=== PATIENT | male | born 1955 | race Caucasian/White ===

== ENCOUNTER 2020-12-12 11:00 | Outpatient (RCR) | payer MEDICARE, SELFPAY ==
--- NOTE | 2020-11-18 11:05 | PTOPEVAL ---
PHYSICAL THERAPY EVALUATION AND PLAN OF CARE 11-18-20 Thank you for referring Chano Pineda to [facility] He is scheduled to be seen for PT? 0-2 x/week for 6 weeks. He was issued a home exercise program for LE strengthening and balance. His will call for appointments as needed. Please review, sign, date and return this plan of care HUGO. I agree with and certify that the following plan of care is medically necessary. Referring Physician Date Attending referral: Carmela Petty NP/ Dr. Fitzpatrick PT Outpatient Evaluation Document 11/18/20 09:40 DOLORES (Rec: 11/18/20 10:34 DOLORES [id number]) Outpatient Past Medical History Past Medical History Source of Past Medical History Family/Significant Other Neurological History Hx Neurological Disorders No Significant History Cardiovascular History Hx Hypercholesterolemia Yes: meds Hx Hypertension Yes: meds Respiratory History Hx Respiratory Disorders No Significant History Gastrointestinal History Hx Gastrointestinal Disorders No Significant History Genitourinary History Hx Other Genitourinary Disorders Yes: issues due to prostate cancer 2016-catheter in hospital Musculoskeletal History Hx Orthopedic Surgery Yes: L femur miranda to stabilize/ no fracture- radiation Hx Other Musculoskeletal Disorders Yes: L LE lymphedema- wear compression knee high Endocrine History Hx Endocrine Disorders No Significant History Reproductive History Hx Other Reproductive Disorders Yes: prostate cancer-surgery & lymph node removal,radiation Other History Hx Cancer Yes: metasatic to bone; Evaluation Information Problem Diagnosis prostate cancer Onset Nov 04, 2020 Subjective Information recent hospitalization, home Query Text:As Reported By Patient/ one week ago; November 08 had Family removal of tumor in his brain; to go this afternoon for consultation and to start radiation to head; Prior Level of Function Activity Level (Last 3 Months) Occupation retired Activity of Daily Living Ability Independent Indoor/Home Mobility Independent Community Mobility Independent Stairs Ability Independent Functional Cognition (Planning, Shopping Needs Some Help , Taking Medications) Home Setting Home Type House,Multiple Levels Living Situation With Spouse Mobility Assistive Devices (Used Last 3 None,Cane Months) Bathroom Environment Shower, Door Bathing Equipment Built in Shower Seat,Grab Bars
--- NOTE | 2020-11-18 11:10 | OTOPEVAL ---
OCCUPATIONAL THERAPY EVALUATION REPORT AND DISCHARGE SUMMARY Chano presents for outpatient OT evaluation following surgical removal of a brain tumor on 11/08/20. He has returned to being independent with ADLs, has intact and symmetrical UE strength and coordination, no visual or visual-perceptual deficits, and has normal sitting balance. Patient's does verbalize concerns about his memory for which a speech therapy order is being faxed over to be signed as ST manages cognition at this clinic. No skilled OT indicated at this time. Thank you for this referral. Thank you for referring Chano Pineda to [facility]. Please review, sign, date and return this D/C HUGO. I agree with and certify that the following plan of care is medically necessary. Referring Physician Date Referring Provider: Carmela Petty NP / Dr. Fitzpatrick *OT Outpatient Evaluation Start: 11/18/20 09:58 Freq: Status: Active Protocol: Document 11/18/20 10:35 LISANDRO (Rec: 11/18/20 11:07 LISANDRO [email or web address]) Therapy Assessment Status Assessment Status Assessment Status Evaluation Outpatient Past Medical History Past Medical History Source of Past Medical History Family/Significant Other Neurological History Hx Neurological Disorders No Significant History Cardiovascular History Hx Hypercholesterolemia Yes: meds Hx Hypertension Yes: meds Respiratory History Hx Respiratory Disorders No Significant History Gastrointestinal History Hx Gastrointestinal Disorders No Significant History Genitourinary History Hx Other Genitourinary Disorders Yes: issues due to prostate cancer 2016-catheter in hospital Musculoskeletal History Hx Orthopedic Surgery Yes: L femur miranda to stabilize/ no fracture- radiation Hx Other Musculoskeletal Disorders Yes: L LE lymphedema- wear compression knee high Endocrine History Hx Endocrine Disorders No Significant History Reproductive History Hx Other Reproductive Disorders Yes: prostate cancer-surgery & lymph node removal,radiation Other History Hx Cancer Yes: metastisis to bone; Evaluation Information Problem Diagnosis prostate cancer Onset Nov 04, 2020 Additional Evaluation Detail Patient was diagnosed with metastatic brain cancer and underwent surgery on 11/08/20 to remove the brain tumor. Subjective Information Patient and his report Query Text:As Reported By Patient/ that [facility]. Prior Level of Function Activity Level (Last 3 Months) Occupation Retired Hand Dominance Right Activity of Daily Living Ability Independent Indoor/Home Mobility Independe
--- NOTE | 2020-11-18 11:28 | PCPTNOTE ---
faxed request to dr for ST services; pt and agreed and wanted ST services.
--- NOTE | 2020-11-23 13:45 | STOPEVAL ---
SPEECH THERAPY INITIAL EVALUATION: Thank you for referring Chano Pineda to [facility].? The patient is scheduled to be seen for therapy? 2x/week for 3 weeks. Please review, sign, date and return this plan of care HUGO. I agree with and certify that the following plan of care is medically necessary. Referring Physician Date Attending Provider: Carmela Petty/ Dr Fitzpatrick fax: [phone] *ST Outpatient Evaluation: Outpatient Past Medical History Past Medical History Source of Past Medical History Family/Significant Other Neurological History Hx Other Neurological Disorders Yes: brain surgery 11-08-20 tumor removal Cardiovascular History Hx Hypercholesterolemia Yes: meds Hx Hypertension Yes: meds Respiratory History Hx Respiratory Disorders No Significant History Gastrointestinal History Hx Gastrointestinal Disorders No Significant History Genitourinary History Hx Other Genitourinary Disorders Yes: issues due to prostate cancer 2016-catheter in hospital Musculoskeletal History Hx Orthopedic Surgery Yes: L femur miranda to stabilize/ no fracture- radiation Hx Other Musculoskeletal Disorders Yes: L LE lymphedema- wear compression knee high Endocrine History Hx Endocrine Disorders No Significant History Reproductive History Hx Other Reproductive Disorders Yes: prostate cancer-surgery & lymph node removal,radiation Other History Hx Cancer Yes: metastasis to bone; Prior Level of Function Activity Level (Last 3 Months) Occupation retired from [employer]; 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 Home Meds Must Be Re-entered With Each Visit. Home Setting Home Type House,Multiple Levels Living Situation With Spouse Cargiver Responsibilities Comment has 4 children: 3 daughters and 1 son; only 1 lives nearby Prior Swallow Level Prior Intake Method Oral
[2020-12-02 13:43] VITALS: O2SAT 100
[2020-12-06 10:00] VITALS: O2SAT 100; O2SAT 80
--- NOTE | 2020-12-08 10:46 | PCSTNOTE ---
SPEECH THERAPY DISCHARGE: Patient:Chano Pineda Date of :1955 Thank you for referring Chano Pineda to [facility].? Patient?s initial visit was on 11/18/2020 09:30 and he had a total of 5 visits All speech/language as well as cognitive linguistic goals have been achieved; no further ST is warranted at this time and pt will be discharged. Please review, sign, date and return this discharge summary UHGO. I have been updated about the patient's current status and I agree with discharge from the above service at this time. Referring Physician Date Attending Provider: Carmela Petty Language Evaluation Auditory Comprehension Auditory Comprehension of Complex 100 Paragraphs (% Accuracy (0-100)) Response Latency No Impairments Overall Auditory Comprehension Ability No Impairments Reading Comprehension Comprehension: 8-10 Words (% Accuracy (0 100 -100)) Comprehension of Complex Statements (% 100 Accuracy (0-100)) Comprehension of Moderate Paragraphs (% 100 Accuracy (0-100)) Comprehension of Complex Paragraphs (% 100 Accuracy (0-100)) Comprehension of Functional Reading No Impairments Materials Reading Comprehension Comments Reading ability: within functional limits Comments Related to Reading returned interest and without Comprehension difficulty Verbal Expression Automatic Speech Ability No Impairments [place] Speech No Impairments Sentence Imitation (% Accuracy (0-100)) 100 Automatic Cued Speech (% Accuracy (0-100 100 )) Open Ended Cued Speech (% Accuracy (0- 100 100)) WH Questions (% Accuracy (0-100)) 100 Confrontational Naming (% Accuracy (0- 100 100)) Stating Object Function (% Accuracy (0- 100 100)) Sentence Formation Given a Stimulus Word 100 (% Accuracy (0-100)) Sentence Formation in Spontaneous No Impairments Conversation Connected Speech No Impairments Response Latency No Impairments Overall Verbal Expression Ability No Impairments Written Expression Overall Written Expression Ability No Impairments Comments Related to Written Expression Written expression appears to be within functional limits. Cognitive RE-Evaluation Attention Assessment Sustained Attention Overall Attention Ability No Impairment Selective Attention Overall Attention Ability No Impairment Alternating Attention Overall Attention Ability No Impairment Orientation/Memory Assessment Immediate Memory 100 Query Text:% Accuracy Recent Memory 100 Query Text:% Accuracy Remote Memory 100 Query Text:% Accuracy Temporal Orientation 100
--- NOTE | 2020-12-12 11:32 | PTOPEVAL ---
PHYSICAL THERAPY DISCHARGE 12-12-20 Refer to the clinical summary below. Chano has achieved all of the PT goals. Discharge PT services. He is to continue with his home exercise program and increasing his activity level as tolerated. Thank you for referring Chano Pineda to [facility].? Please review, sign, date and return this discharge HUGO. I agree with and certify that the following plan of care is medically necessary. Referring Physician Date Attending Provider: Carmela Petty NP Document 12/12/20 11:05 DOLORES (Rec: 12/12/20 11:32 DOLORES [id number]) Assessment Status Discharge Subjective Information Chano reports: has been Query Text:As Reported By Patient/ walking more- went [place] Family yesterday with his family, more active with cleaning home and outside chores; feel like balance is good when walking; going into basement OK, have not had any falls; doing leg exercises at home; cannot think of any thing that he is having problems with at home; ready for being done with therapy. Pain Assessment Timing of Pain Assessment Timing of Pain Assessment Assessment Self Report Self Report Pain Level 0 Pain Score Pain Score 0: Self Report Lower Extremity Muscle Strength Testing General Lower Extremity Strength Gross Lower Extremity Strength single leg standing: R 27/ L 18 seconds; standing with 3# ankle wt: hip abduction, hip flexion, hip extension, knee flexion: R and L x 20 reps; Balance Assessment [place] Balance Assessment Sitting to Standing Independent w/out Hands Unsupported Stance Ability Safely- 2 minutes Sitting Unsupported, Feet on Floor Safely- 2 minutes Standing to Sitting Safely, Minimal Hand Use Transfer Ability Safely, Minimal Hand Use Unsupported Stance- Eyes Closed Safely, 10 seconds Unsupported Stance- Feet Together Independent, 1 minute Reaching Forward while Standing Confidently, 10 inches cooker syrup Object From Floor Independent/Safe Look Behind Shoulder - Standing Shifts Weight Well Turning 360 Degrees Turns Bilateral, < 4 secs Unsupported Stance, Alternating Feet on (I)- 8 Steps in 20 secs Stair Unsupported Tandem Stance Achieves Tandem Unilateral Leg Stance Lifts Leg/Holds 10 secs [place] Balance Evaluation Total Score (/56 56 points) Time Up Go (TUG) Timed Up and Go Test (TUG) (Seconds) 8 Assistive Devices None Gait Assessment Gait Assessmen
== END 2020-12-12 14:49 | disposition home or self-care (01) ==
LOC: ANHPT 11:00
DX: C61 Malignant neoplasm of prostate (principal); Z48.811 Encounter for surgical aftercare following surgery on the nervous system; R48.8 Other symbolic dysfunctions
CPT/HCPCS: 92507; 92523; 97110; 97129; 97130; 97161; 97165

== ENCOUNTER 2021-10-09 11:00 | Observation (INO) | payer MEDICARE, SELFPAY ==
[2021-10-09] VITALS (58 sets, daily range): BP systolic 122–142; BP diastolic 67–86; PULSE 71–93; RESP 12–25; TEMP 36.4–36.9; O2SAT 94–100
--- NOTE | ~2021-10-09 | XR_ITS ---
EXAMINATION: XR chest 2V DATE: 10/09/2021 11:26 INDICATION: Chest pain. TECHNIQUE: Frontal and lateral views of the chest were obtained. COMPARISON: None. FINDINGS: The lung volumes are small. There is mild scarring at the lung apices. There is mild atelec tasis in the lower lung zones. A calcified right lung nodule is consistent with old granulomatous dis ease. No pleural effusion or pneumothorax. The heart size is normal. There are sclerotic lesions in p roximal right humerus and right scapula. IMPRESSION: 1. Small lung volumes with mild atelectasis in the lower lung zones. 2. Mild scarring at the lung apices. 3. Sclerotic lesions of bone, consistent with metastatic disease. Reviewed, dictated and finalized at location A. RIAL DAMAGE APPRAISER
--- NOTE | ~2021-10-09 | CT_ITS ---
EXAMINATION: CTA chest PE protocol DATE: 10/09/2021 12:19 INDICATION: Chest pain. Elevated d-dimer. TECHNIQUE: Computed tomography (CT) pulmonary angiogram of the chest was performed with 100 mL Omnipa que-350 intravenous contrast. Additional 3D reconstructions utilizing coronal maximum intensity proje ction (MIP) were performed. Automated exposure control and iterative reconstruction technique were em ployed. The dose-length product was 577.34 mGy-cm. COMPARISON: None FINDINGS: Good contrast opacification of the pulmonary arteries. There is mild streak artifact from dense contr ast in the superior vena cava and right atrium. Mild scattered respiratory motion artifact in the low er lungs were minimally decreases sensitivity in some of the subsegmental pulmonary arteries. No pulm onary embolism. Several calcified pulmonary nodules in the right lower lobe along with calcified righ t hilar lymph nodes consistent with old granulomatous disease. Small region of consolidation in the p osterior medial basilar right lower lobe and favor atelectasis over pneumonia. Additional less severe dependent atelectasis in the bilateral lower lobes. No pulmonary edema or pleural effusion. Small ri ght-sided tracheal diverticulum at the thoracic inlet. Heart size is normal. Thoracic aorta is normal in caliber with no dissection. No pathologically enlarged thoracic lymphadenopathy. Small sliding-ty pe hiatal hernia. Multiple well-defined low-attenuation hepatic cysts, the largest measuring 2.3 cm a t the caudate lobe. Numerous splenic calcific lesions consistent with old granulomatous disease. Mode rate thoracic spondylosis. There are numerous scattered sclerotic bone lesions consistent with metast atic disease in this patient with known history of prostate cancer. IMPRESSION: 1. No pulmonary embolism. 2. Mild consolidation posterior medial basilar right lower lobe and favor atelectasis over pneumonia. 3. Small sliding-type hiatal hernia. 4. Numerous scattered sclerotic bone lesions consistent with metastatic prostate cancer. Reviewed, dictated and finalized at location A. METRIC AIDE IMPRESSION: 1. No pulmonary embolism. 2. Mild consolidation posterior medial basilar right lower lobe and favor atele ctasis over pneumonia. 3. Small sliding-type hiatal hernia. 4. Numerous scattered sclerotic bone lesions consistent with metastatic prostat e cancer.
--- NOTE | 2021-10-09 11:02 | ECG_ITS ---
Measurements Intervals [place] Rate: 76 P: 1 OK: 143 QRS: -25 QRSD: 113 T: -2 QT: 424 QTc: 477 Interpretive Statements SINUS RHYTHM VOLTAGE CRITERIA FOR LVH BORDERLINE ST-T WAVE ABNORMALITY- INFERIOR LEADS BASELINE ARTIFACT- I, II, III, AVR, AVL, AVF, V1-V6 BORDERLINE ECG Electronically Signed On 10-10-2021 8:04:05 SOCIAL SCIENCE INSTRUCTOR by Rasheed Hardwick D.O.
--- NOTE | 2021-10-09 11:07 | ED.CHESTPAIN ---
HPI - Chest Pain General Chief Complaint: Chest Pain Stated Complaint: CP Time Seen by Provider: 10/09/21 11:07 Source: patient and EMS Mode of arrival: EMS Limitations: no limitations History of Present Illness HPI narrative: The patient is a 66-year-old male with a history of hypertension, hyperlipidemia, metastatic prostate cancer currently undergoing chemotherapy, presenting for evaluation of chest pain. Chest pain began approximately 7 AM this morning described as a dull, aching chest pain over the center of his chest. Patient with radiation of the pain to bilateral shoulders into the elbows. He denies any lower back pain. No ripping or tearing sensation to the flanks. No associated shortness of breath, nausea, diaphoresis. Patient did not pass out, no presyncopal feelings. He denies fever, chills, cough or hemoptysis. Patient denies history of this in the past. States he was at rest when the symptoms began. Patient called an ambulance when he began to feel pain in his bilateral elbows. In the ambulance, the patient was given aspirin, Nitropaste with improvement in his symptoms patient states pain is nearly resolved. He denies any other secondary symptoms at this time. Patient has no history of smoking. No history of coagulopathy or blood clot. He is not on any anticoagulation. His father had a heart attack in his 30s, but this patient has no history of heart attack. Patient denies history of stress test or cardiac catheterization. Patient denies recent long car or air travel. No calf swelling or leg swelling. Patient is undergoing chemotherapy through [facility] for metastatic prostate cancer. Related Data Allergies Allergy/AdvReac Type Severity Reaction Status Date / Time No Known Allergies Allergy Mild Verified 10/09/21 11:01 Review of Systems Review of Systems: CONSTITUTIONAL: Denies fever, chills, or sweats. EYES: Denies visual changes, redness, or discharge. ENT: Denies rhinorrhea, congestion, sore throat, or otalgia. CARDIOVASCULAR: Reports mild chest pain without palpitations or edema RESPIRATORY: Denies cough or dyspnea. No pain with deep inspiration. GASTROINTESTINAL: Denies abdominal pain, nausea, vomiting, or diarrhea. GENITOURINARY: Denies dysuria or hematuria. SKIN: Denies rash or itching. MUSCULOSKELETAL: Denies back pain, joint pain, or myalgia. NEUROLOGIC: Denies headache, numbness, or weakness. PMFSH Social History Social History (Updated 10/09/21 @ 11:22 by Sienna Cardoza MD) Smoking status: Never smoker Alcohol intake: never Substance use: never Living arrangements: with family Gender identity (if verbalized by the patient): Male Exam Narrative: GENERAL: Awake, alert, conversant HEAD: Normocephalic, atraumatic. EYES: PERRLA and EOMI. ENT: Nares clear, no rhinorrhea or epistaxis. Mucous membranes moist. NECK: Supple. CHEST: No respiratory distress, breathing even and non labored, no chest wall tenderness HEART: Regular rate, sinus rhythm ABDOMEN:Non distended, non tender EXTREMITIES: Normal range of motion. No edema. No calf tenderness bilaterally. SKIN: Warm, dry, no rash. NEURO:No focal deficits. Alert and oriented x3 Course Vital Signs Vital signs: Vital Signs Temperature 36.9 C 10/09/21 10:57 Pulse Rate 79 10/09/21 10:57 Respiratory Rate 12 10/09/21 10:57 Pulse Oximetry 100 10/09/21 10:57 Temperature 36.9 C 10/09/21 10:57 Pulse Rate 73 10/09/21 15:30 Respiratory Rate 18 10/09/21 15:30 Blood Pressure 130/71 10/09/21 14:43 Pulse Oximetry 99 10/09/21 15:30 MDM - Chest Pain MDM Narrative Medical decision making narrative: Patient presenting for evaluation of chest pain. At the time of assessment, chest pain is mostly resolved. Patient was given aspirin, Nitropaste in route and states that this greatly improved his pain. Reproducible chest wall pain on exam. IV access obtained and labs are drawn. Laboratory
[2021-10-09 11:14] LABS: Hematocrit 32.9 % (42.0-52.0); Hemoglobin 10.6 g/dL (14.0-18.0); Mean Corpuscular HGB Conc 32.2 g/dl (32-36); Mean Corpuscular Hemoglobin 30.3 pg (26-34); Mean Platelet Volume 8.4 fl (7.4-10.4); Platelet Count Result 209 k/mm3 (150-375); Red Cell Distribution Width 15.5 % (11.5-14.5); White Blood Count 8.3 K/mm3 (4.5-10.0)
[2021-10-09 11:25] LABS: INR 0.9; Prothrombin Time 12.4 Seconds (11.1-14.7)
[2021-10-09 11:26] LABS: Partial Thromboplastin Time 24.7 SECONDS (22.3-36.8)
[2021-10-09 11:29] LABS: Alanine Aminotransferase 19 U/L (4-50); Albumin Level 3.9 g/dL (3.5-5.1); Alkaline Phosphatase 130 U/L (38-126); Anion Gap 9 mmol/L (8-16); Aspartate Amino Transferase 26 U/L (17-59); Bilirubin,Total 0.3 mg/dL (0.2-1.3); Blood Urea Nitrogen 22 mg/dL (9-20); Calcium 9.2 mg/dL (8.4-10.2); Carbon Dioxide 28 mmol/L (22-30); Chloride 100 mmol/L (98-107); Estimated Glomerular Filt Rate 60; Glucose 136 mg/dL (65-110); Lipase 29 U/L (23-300); Potassium 2.9 mmol/L (3.4-5.0); Sodium 137 mmol/L (137-145)
[2021-10-09 11:39] LABS: Troponin I < 0.012 ng/mL (0.000-0.034)
[2021-10-09 11:40] LABS: Band Neutrophils Percent 13 % (0-6); Eosinophils Absolute Manual 0.24 K/mm3 (0.02-0.5); Eosinophils Percent Manual 3 % (0-4); Lymphocytes Absolute Manual 0.33 K/mm3 (1.1-4.5); Metamyelocytes Percent 2 %; Monocytes Absolute Manual 0.41 K/mm3 (0.1-0.90); Monocytes Percent Manual 5 % (3-9); Neutrophils Absolute Manual 7.13 K/mm3 (1.3-6.7); Neutrophils Percent Manual 73 % (46-73); Total Cells Counted 100
[2021-10-09 11:41] LABS: Ovalocytes 1+ (NORMAL); Platelet Estimate Adequate (Adequate)
[2021-10-09 11:46] LABS: D Dimer 0.74 ug/mL (<0.48)
[2021-10-09] MEDS: POTASSIUM CHLORIDE 20 MEQ PACKET (FOR LIQUID) 40 MEQ PO (12:35)
[2021-10-09 14:39] LABS: Troponin I < 0.012 ng/mL (0.000-0.034)
[2021-10-09 17:25] LABS: Troponin I < 0.012 ng/mL (0.000-0.034)
[2021-10-09 17:39] LABS: SARS-CoV-2 RNA PCR Positive
--- NOTE | 2021-10-09 20:37 | PM.IMHP ---
H&P: HPI History of Present Illness Date/Time: 10/09/21 20:37[place] is a 66-year-old male patient with a history of hypertension and hyperlipidemia. He is currently undergoing treatment for metastatic cancer with chemotherapy. He came in for evaluation of chest pain. He stated that early this morning he woke up and he had a dull chest pain in midsternal went across both of his arms. The patient denies having any injury or any recent straining is exercise. The patient stated that the pain went all way down to his elbows. He called his oncologist who stated that he should call the ambulance go to the hospital. The patient stated he was given aspirin in the ambulance. Then he was given nitro paste. The patient stated that it took him a little bit to have the pain relieved. Patient has had no prior history of coagulopathy or any blood clot. He has not had any previous cardiac catheterizations or stress test . Patient's troponins were negative x3. No EKGs available from my view. Chest x-ray was read as small lung volumes with mild atelectasis in the lower lung zones. Mild scarring at the lung apices. Sclerotic lesions of bone consistent with metastatic disease. The patient is aware the sclerotic lesions. Chest CTA was read as no pulmonary embolism. Mild consolidation posterior medial basilar right lower lobe in favor atelectasis over pneumonia. Small sliding type hiatal hernia. Numerous scattered sclerotic bone lesions consistent with metastatic prostate cancer. Again the patient is aware of these bone lesions. The patient was found to be positive for COVID. His potassium was found to be 2.9 and this was replaced. The patient is being admitted for observation status on the date of service of 10/09/2021. Chief Complaint: chest pain Review of Systems Review of Systems: All systems reviewed & are unremarkable except as noted in HPI and below Constitutional: Constitutional: Reports as per HPI and Reports no additional constitutional complaints Eyes: Eyes: Reports as per HPI and Reports no additional eye complaints ENT: Reports system reviewed and no additional complaints, except as documented and Reports Normal hearing present Cardiovascular: Cardiovascular: Reports no additional cardiovascular complaints Respiratory: Respiratory: Reports no additional respiratory complaints and Reports no additional respiratory complaints Gastrointestinal: Gastrointestinal: Reports as per HPI and Reports no additional gastrointestinal complaints Musculoskeletal: Musculoskeletal: Reports no additional musculoskeletal complaints Integumentary/Breasts: Skin/Breast: Reports system reviewed and no additional complaints, except as docu and Reports as per HPI Neurologic: Reports system reviewed and no additional complaints, except as documented, Reports as per HPI and Reports Normal hearing present Psychiatric: Psychiatric: Reports no additional psychiatric complaints and Reports as per HPI Endocrine: Endocrine: Reports no additional endocrine complaints Hematologic/Lymphatic: Hematologic/Lymphatic: Reports no additional hematologic/lymphatic complaints Allergic/Immunologic: Allergic/Immunologic: Reports no additional allergic/immunologic complaints PMFSH Past Medical History Medical History Anxiety Chronic GERD Hyperlipidemia Hypertension Prostate cancer last week chemo wed 3 of 6 every 3 weeks Surgical History Surgical History H/O brain surgery History of tonsillectomy S/P ORIF (open reduction internal fixation) fracture left femur miranda Family History Family History Mother Breast cancer Father Acute myocardial infarction Social History Social History (Updated 10/09/21 @ 22:47 by Moriah Lazaro NP) Social History: The patient lives with his aren who is his du
[2021-10-09 22:44] LABS: Anion Gap 6 mmol/L (8-16); Blood Urea Nitrogen 22 mg/dL (9-20); Calcium 9.1 mg/dL (8.4-10.2); Carbon Dioxide 29 mmol/L (22-30); Chloride 100 mmol/L (98-107); Estimated Glomerular Filt Rate 55; Glucose 147 mg/dL (65-110); Potassium 3.4 mmol/L (3.4-5.0); Sodium 135 mmol/L (137-145)
[2021-10-09 22:56] LABS: Troponin I < 0.012 ng/mL (0.000-0.034)
[2021-10-10] VITALS (8 sets, daily range): BP systolic 119–131; BP diastolic 63–82; PULSE 66–81; RESP 16–20; TEMP 35.6–36.7; O2SAT 97–99; BMI 33.0
--- NOTE | 2021-10-10 | ECHO_ITS ---
Patient Info Name: Chano Pineda Age: 66 years : 1955 Gender: Male Ht: 69 in Wt: 223 lbs BSA: 2.25 m2 HR: 81 bpm BP: 119 / 63 mmHg Heart Rhythm: Sinus Rhythm Exam Date: 10/10/2021 11:31 AM Exam Location: [facility] Pulmonary Patient Status: Inpatient Admit Date: 10/09/2021 Staff Ordering Physician: Keo Gabriel MD Systems Technologist: Adi Garnett, MAYDACS, RT Attending Provider: Graciela Alejandre MD Exam Type: CA echo doppler color flow Study Info Indications R07.9 - Chest pain, unspecified Complete two-dimensional, color flow and Doppler transthoracic echocardiogram is performed. Strain analysis performed. Summary 1. Complete two-dimensional, color flow and Doppler transthoracic echocardiogram is performed. 2. Normal LV size and wall thickness, normal LV systolic function, ejection fraction 60-65%. Grade 1 diastolic dysfunction. Normal mitral valve structure, no significant MR. Mild aortic valve sclerosis without hemodynamically significant stenosis. Trivial TR, mild pulmonary hypertension, RVSP 40 mmHg. Normal sinus rhythm. Left Ventricle Left ventricular chamber dimension is normal. Left ventricular systolic function is normal, estimated at 60-65%. There is no increased left ventricular wall thickness. The left ventricular diastolic function is grade I diastolic dysfunction. Right Ventricle Right ventricular chamber dimension is normal. Right ventricular systolic function is normal. Left Atria Left atrial chamber dimension is normal. Right Atria Right atrial chamber dimension is normal. Aortic Valve There is mild aortic valve sclerosis. There is no aortic valve stenosis. Pulmonic Valve The pulmonic valve is normal. Mitral Valve The mitral valve has normal leaflets. There is no mitral valve regurgitation. Tricuspid Valve The tricuspid valve leaflets are normal. There is trace tricuspid valve regurgitation. Mild pulmonary hypertension, estimated pulmonary arterial systolic pressure is 40 mmHg. Pericardium/Pleural The pericardium appears epicardial fat pad. Aorta The aortic root size at the sinus of Valsalva is normal. Left Ventricular Outflow Tract Name Value Normal LVOT 2D LVOT Diameter 2.1 cm LVOT Doppler LVOT Peak Gradient 8 mmHg LVOT Mean Gradient 4 mmHg LVOT VTI 23 cm LVOT VTI/AV VTI Ratio 0.8 LVOT Stroke Volume 84 ml LVOT CO 6.5 l/min LVOT CI 2.9 l/min/m2 Mitral Valve Name Value Normal MV Doppler MV Decel Delta 309 cm/s2 MV PHT 62 ms MV Area (PHT) 3.5 cm2 4.0-5.0 MV Diastolic Function
--- NOTE | 2021-10-10 04:24 | ADMGEN ---
This patient, Chano Pineda, was admitted to IMU Room 204-01. Patient/family oriented to hospital policies and general routines including ID bracelet, bed and alarms, visiting hours, pain management, procedures, bathroom and other care routines, personal items, smoking policy, room service/diet, and visiting hours. Information on how to activate the Rapid Response Team has been discussed. Patient/Family are encouraged to report perceived risks to care and to ask questions if they do not understand what they are told or what they should do.
[2021-10-10 05:00] LABS: Hemoglobin 10.2 g/dL (14.0-18.0); Mean Corpuscular HGB Conc 31.9 g/dl (32-36); Mean Corpuscular Hemoglobin 30.3 pg (26-34); Platelet Count Result 212 k/mm3 (150-375); Red Blood Count 3.37 M/mm3 (4.6-6.20); Red Cell Distribution Width 15.9 % (11.5-14.5); White Blood Count 13.3 K/mm3 (4.5-10.0)
[2021-10-10 05:27] LABS: Alanine Aminotransferase 20 U/L (4-50); Alkaline Phosphatase 131 U/L (38-126); Anion Gap 9 mmol/L (8-16); Aspartate Amino Transferase 44 U/L (17-59); Bilirubin,Total 0.7 mg/dL (0.2-1.3); Blood Urea Nitrogen 23 mg/dL (9-20); CRP 2.2 mg/dL (<1.0); Calcium 8.7 mg/dL (8.4-10.2); Carbon Dioxide 28 mmol/L (22-30); Chloride 100 mmol/L (98-107); Estimated CRCL calculation 68 ml/min; Estimated Glomerular Filt Rate > 60; Glucose 122 mg/dL (65-110); Lactate Dehydrogenase 1256 U/L (313-618); Magnesium 2.1 mg/dL (1.6-2.3); Potassium 3.9 mmol/L (3.4-5.0); Sodium 137 mmol/L (137-145)
[2021-10-10 05:48] LABS: Lactic Acid Reflex 2.1 mmol/L (0.7-2.1)
[2021-10-10 06:05] LABS: Anisocytosis 1+ (NORMAL); Atypical Lymphocytes Present; Band Neutrophils Percent 28 % (0-6); Eosinophils Absolute Manual 0.26 K/mm3 (0.02-0.5); Eosinophils Percent Manual 2 % (0-4); Lymphocytes Absolute Manual 1.59 K/mm3 (1.1-4.5); Metamyelocytes Percent 3 %; Monocytes Absolute Manual 1.59 K/mm3 (0.1-0.90); Monocytes Percent Manual 12 % (3-9); Neutrophils Absolute Manual 9.44 K/mm3 (1.3-6.7); Neutrophils Percent Manual 43 % (46-73); Platelet Estimate Adequate (Adequate); Total Cells Counted 100
[2021-10-10 07:58] LABS: Reflex Lactic Acid Yes or No Add Lactic
[2021-10-10 09:09] LABS: Lactic Acid 1.9 mmol/L (0.7-2.1)
--- NOTE | 2021-10-10 09:19 | PM.CNCAR ---
Assessment and Plan Assessment and plan (1) Chest pain: Code(s): R07.9 - Chest pain, unspecified Status: Acute Assessment and Plan: 66-year-old male with hypertension, dyslipidemia, GERD, metastatic CA prostate on chemotherapy. Patient admitted to the hospital with complaint of chest pain. EKG is unremarkable, serial troponins are negative. Patient found to be positive for COVID-19 infection. He does not have any major symptoms from COVID-19 at this time, and is on room air. Chest pain has resolved. No known prior cardiac history. Patient was originally scheduled for stress test, which has been canceled now due to his COVID-19 infection. Will proceed with 2D echocardiogram with Doppler to assess LV function, and check for any segmental wall motion abnormality. If patient's echocardiogram is grossly unremarkable, then he may be discharged home from cardiovascular standpoint with an outpatient follow-up. Need for ischemic evaluation will be determined as an outpatient. Continue aspirin. (2) Hypertension: Code(s): I10 - Essential (primary) hypertension Status: Chronic Assessment and Plan: Continue current antihypertensives. (3) Metastatic cancer: Code(s): C79.9 - Secondary malignant neoplasm of unspecified site Status: Acute Assessment and Plan: Management per oncology. Patient follows up with [facility]. History of Present Illness History of Present Illness Consult date/time: 10/10/21 09:19 DATE OF CONSULT: 10/10/2021 REASON FOR CONSULT: Chest pain REQUESTING PHYSICIAN:Sienna Cardoza MD CHIEF COMPLAINT: Chest pain HPI: 66-year-old male with hypertension, dyslipidemia, GERD, metastatic CA prostate on chemotherapy. Patient presented to [facility] Emergency Room on 10/09/2019 with complaints of chest pain. He describes his pain as discomfort in the substernal area, localized, not associated with shortness of breath, palpitation, dizziness or syncope. Patient states that he had COVID-19 infection about a month ago, which did not require hospitalization. He states that he had mild symptoms. He reports that he was vaccinated and boosted. He denies any prior known cardiac history including clinical [place], angina, heart failure arrhythmias. He has not had any recurrent chest discomfort since hospitalization. EKG on my personal evaluation shows sinus rhythm without any acute ST segment abnormality. Serial troponins are negative. D-dimer minimally elevated. Chest x-ray shows Small lung volumes with mild atelectasis in the lower lung zones; Mild scarring at the lung apices; Sclerotic lesions of bone, consistent with metastatic disease. CTA chest showed No pulmonary embolism; mild consolidation posterior medial basilar right lower lobe and favor atelectasis over pneumonia; Small sliding-type hiatal hernia, numerous scattered sclerotic bone lesions consistent with metastatic prostate cancer. Patient was found to be positive for COVID-19 infection and is currently in isolation. Reason For Visit: Unstable Angina Review of Systems Review of Systems: General: Negative for fever, chills, fatigue Psychological: Negative for anxiety, depression Ophthalmic: negative for loss of vision ENT: Negative for epistaxis, headaches Allergy and immunology: Negative for hives, nasal congestion Hematologic and lymphatic: Negative for overt bleeding problems Endocrine: Negative for hot flashes, palpitations Respiratory: Positive for cough with scant expectoration Cardiovascular: Positive for chest pain which has resolved now Gastrointestinal: Negative for abdominal pain, nausea, vomiting, hematochezia Musculoskeletal: Negative for myalgia, joint pains Neurological: Negative for weakness Dermatological: Negative for rash, skin discoloration PMFSH Past Medical History Medical History Anxiety Chronic GERD Hyperlip
[2021-10-10] MEDS: ASPIRIN 81 MG CHEWABLE TABLET 324 MG PO (09:24)
[2021-10-10] MEDS: ENOXAPARIN 40 MG/0.4 ML SYRINGE SUB-Q (09:25)
[2021-10-10] MEDS: lisinopriL 20 MG TABLET 40 MG PO (14:02)
[2021-10-10] MEDS: levETIRAcetam 500 MG TABLET 2000 MG PO (14:03)
[2021-10-10] MEDS: POTASSIUM CHLORIDE 20 MEQ TABLET.ER 40 MEQ PO (14:03)
[2021-10-10] MEDS: VENLAFAXINE HCL XR 75 MG CAP.ER.24H PO (14:04)
[2021-10-10] MEDS: hydroCHLOROthiazide 25 MG TABLET PO (14:05)
[2021-10-10] MEDS: predniSONE 10 MG TABLET PO (14:05)
[2021-10-10] MEDS: amLODIPine BESYLATE 5 MG TABLET 10 MG PO (14:05)
[2021-10-10] MEDS: TAMSULOSIN HCL 0.4 MG CAPSULE PO (14:06)
--- NOTE | 2021-10-10 14:10 | PM.DS ---
DS: Admitting Diagnosis Discharge Date 10/10/2021 Admitting Diagnosis Chest pain DS: Discharge Diagnosis Discharge Diagnosis (1) Chest pain: Code(s): R07.9 - Chest pain, unspecified Status: Acute Assessment and Plan: patient's troponins are negative. I did order for stress test. However since he tested positive for COVID I am not sure if they will be able to do it. Patient no longer has any chest discomfort. Patient has no pulmonary embolism as per his CTA. Patient is on room air not requiring any oxygen at this time. (2) Hypokalemia: Code(s): E87.6 - Hypokalemia Status: Acute Assessment and Plan: Replace as necessary. (3) Chronic GERD: Code(s): K21.9 - Gastro-esophageal reflux disease without esophagitis Status: Chronic Assessment and Plan: Continue with his home dose of PPI. (4) Hypertension: Code(s): I10 - Essential (primary) hypertension Status: Chronic Assessment and Plan: Continue with his home medications once they are reconciled. (5) COVID: Code(s): U07.1 - COVID-19 Status: Acute Assessment and Plan: Patient is currently on room air. Was incidental find. No antiviral her steroids were started this time. (6) Anxiety: Code(s): F41.9 - Anxiety disorder, unspecified Status: Chronic Assessment and Plan: Continue with patient's home medications. (7) Hyperlipidemia: Code(s): E78.5 - Hyperlipidemia, unspecified Status: Chronic Assessment and Plan: Continue with home medications. (8) Prostate cancer: Code(s): C61 - Malignant neoplasm of prostate Status: Chronic Assessment and Plan: The patient is in a study group and being treated by an outside oncologist. Patient will return to his own oncologist outpatient DS: Summary Hospital Course Reason for hospitalization: This is a 66-year-old male patient with a history of hypertension and hyperlipidemia. He is currently undergoing treatment for metastatic cancer with chemotherapy. He came in for evaluation of chest pain. He stated that early this morning he woke up and he had a dull chest pain in midsternal went across both of his arms. The patient denies having any injury or any recent straining is exercise. The patient stated that the pain went all way down to his elbows. He called his oncologist who stated that he should call the ambulance go to the hospital. The patient stated he was given aspirin in the ambulance. Then he was given nitro paste. The patient stated that it took him a little bit to have the pain relieved. Patient has had no prior history of coagulopathy or any blood clot. He has not had any previous cardiac catheterizations or stress test . Patient's troponins were negative x3. No EKGs available from my view. Chest x-ray was read as small lung volumes with mild atelectasis in the lower lung zones. Mild scarring at the lung apices. Sclerotic lesions of bone consistent with metastatic disease. The patient is aware the sclerotic lesions. Chest CTA was read as no pulmonary embolism. Mild consolidation posterior medial basilar right lower lobe in favor atelectasis over pneumonia. Small sliding type hiatal hernia. Numerous scattered sclerotic bone lesions consistent with metastatic prostate cancer. Again the patient is aware of these bone lesions. The patient was found to be positive for COVID. His potassium was found to be 2.9 and this was replaced. The patient is being admitted for observation status on the date of service of 10/09/2021. Chief Complaint: chest pain Hospital Course: patient's troponins are negative. order for stress test. However since he tested positive for COVID Since patient was COVID positive stress test was not done, Patient no longer has any chest discomfort. Patient has no pulmonary embolism as per his CTA. Patient is on room air not requiring any
== END 2021-10-10 14:45 | disposition home or self-care (01) ==
LOC: ANHED 16:38 → ANHIMU 10-10 13:44 → ANH2MED 10-11 09:57 → ANHIMU 10-11 09:57
PROVIDERS: Family Medicine; Nurse Practitioner; Admitting Provider Family Medicine; Emergency Provider Emergency Medicine; PCP Internal Medicine; Visit Provider Family Medicine
DX: U07.1 COVID-19 (principal); R07.9 Chest pain, unspecified; C61 Malignant neoplasm of prostate; C79.51 Secondary malignant neoplasm of bone; E87.6 Hypokalemia; E78.5 Hyperlipidemia, unspecified; F41.9 Anxiety disorder, unspecified; K44.9 Diaphragmatic hernia without obstruction or gangrene; I10 Essential (primary) hypertension; K21.9 Gastro-esophageal reflux disease without esophagitis; Z92.21 Personal history of antineoplastic chemotherapy
CPT/HCPCS: 36415; 71046; 71275; 80048; 80053; 82728; 83605; 83615; 83690; 83735; 84443; 84484; 85025; 85380; 85610; 85730; 86140; 93005; 93306; 96372; 99285; A9270; C9803; G0378; J1650; J7512; Q9967; U0003; U0005